=== PATIENT | male | born 2000 | race Caucasian/White ===

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

== ENCOUNTER 2022-03-03 08:37 | Emergency (ER) | payer OTHER ==
[2022-03-03 08:47] VITALS: BP 106/63; PULSE 89; RESP 16; TEMP 100.8; BMI 22.6
[2022-03-03] MEDS ORDERED: IBUPROFEN 400 MG TABLET (FP) PO ONE ×2 (08:57→09:17)
== END 2022-03-03 09:54 | disposition home or self-care (01) ==
LOC: FER 08:37
DX: J02.9 Acute pharyngitis, unspecified (principal)
CPT/HCPCS: 0241U-QW; 87651; 99283-25

== ENCOUNTER 2022-08-26 04:32 | Day surgery (SDC) | payer OTHER ==
[2022-08-24 10:54] VITALS: BMI 19.3
[2022-08-26 12:28] VITALS: BP 112/63; PULSE 68; RESP 16; TEMP 98
== END 2022-08-26 12:30 | disposition home or self-care (01) ==
LOC: JASU-ENDO 04:32
PROVIDERS: ATTEND Internal Medicine Gastroenterology
PROC: 0DB78ZX Excision of Stomach, Pylorus, Via Natural or Artificial Opening Endoscopic, Diagnostic (ICD-10-PCS; 2022-08-26)
PROC: 0DB28ZX Excision of Middle Esophagus, Via Natural or Artificial Opening Endoscopic, Diagnostic (ICD-10-PCS; 2022-08-26)
PROC: 0DB38ZX Excision of Lower Esophagus, Via Natural or Artificial Opening Endoscopic, Diagnostic (ICD-10-PCS; 2022-08-26)
PROC: 0DB98ZX Excision of Duodenum, Via Natural or Artificial Opening Endoscopic, Diagnostic (ICD-10-PCS; principal; 2022-08-26 12:00)
DX: K29.40 Chronic atrophic gastritis without bleeding (principal); K21.00 Gastro-esophageal reflux disease with esophagitis, without bleeding
CPT/HCPCS: 88305-TC; 88342-TC